=== PATIENT | male | born 1935 | race Caucasian/White ===

== ENCOUNTER 2019-05-17 22:31 | Observation (INO) | payer MEDICARE, SELFPAY ==
--- NOTE | ~2019-05-17 | XR_ITS ---
XR chest 2V 05/17/2019 23:17 Indication: Chest and back pain Procedure: 2 view chest Comparison: 06/10/2016 Findings: Cardiomegaly with pulmonary vascular congestion. Pacemaker leads are stable. Status post me bryson sternotomy for CABG. No pleural effusion or pneumothorax. No acute osseous abnormality. Impression: 1: Cardiomegaly with pulmonary vascular congestion. Reviewed, dictated and finalized at location A. COAT WIPER Impression: 1: Cardiomegaly with pulmonary vascular congestion.
[2019-05-17 22:35] VITALS: BP 143/68; PULSE 66; RESP 14; TEMP 37.3; O2SAT 98
--- NOTE | 2019-05-17 22:42 | ECG_ITS ---
Measurements Intervals [place] Rate: 65 P: 11 [place]: 193 QRS: -57 QRSD: 160 T: 104 QT: 438 QTc: 457 Interpretive Statements SINUS RHYTHM WITH POLYMORPHIC VENTRICULAR TRIPLET AND VENTRICULAR PREMATURE COMPLEXES LEFT BUNDLE BRANCH BLOCK ABNORMAL ECG Electronically Signed On 05-18-2019 6:58:03 RETURNS SUPERVISOR by Noé Herr D.O.
--- NOTE | 2019-05-17 22:58 | ED.CHESTPAIN ---
HPI - Chest Pain General Chief Complaint: Chest Pain Stated Complaint: back pain, shoulder pain traveling to front Source: patient and family Mode of arrival: ambulatory Limitations: no limitations History of Present Illness HPI narrative: He too bad with history of coronary disease and systolic heart failure comes in today complaining of pain in the right side of his mid back that radiates to the right side of his chest. He states he has had this pain for some time and it is alleviated by activity and worse after sitting. He states that he took a nitroglycerin tab earlier today with some Tylenol and his pain was alleviated. He took more nitroglycerin 20 minutes prior to arrival and his pain did not subside. He denies nausea, vomiting, sweating, cough or cold symptoms, syncope, ankle swelling, lightheadedness and palpitations. He states it does not feel like when had his DE in 1980. 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 Onset (ago): day(s) Timing of current episode: episodic and daily Prior episodes: Yes Onset: during rest Pain location: right chest Pain radiation: right scapula Severity: moderate Quality: sharp Relieving factors: nitroglycerin and movement Exacerbating factors: other ( Sitting) Associated symptoms: fever Treatment prior to arrival: nitroglycerin Risk Factors Coronary artery disease risk factors: smoking history, hyperlipidemia and hypertension Related Data Home Medications Medication Instructions Recorded Confirmed alprazolam 0.25 mg PO DAILY 05/02/19 05/17/19 atorvastatin 20 mg PO HS 05/02/19 05/17/19 carvedilol 9.25 mg PO BID 05/02/19 05/17/19 ezetimibe 5 mg PO DAILY 05/02/19 05/17/19 niacin 500 mg PO BID 05/02/19 05/17/19 nitroglycerin 0.4 mg SUBLINGUAL Q5-15M PRN 05/02/19 05/17/19 pantoprazole 20 mg PO HS 05/02/19 05/17/19 sacubitril-valsartan [Entresto] 1 tablet PO BID 05/02/19 05/17/19 acetaminophen [Tylenol Extra 1,000 mg PO Q4-5H PRN 05/17/19 05/17/19 Strength] antiox. [id number] 2 cap PO DAILY 05/17/19 05/17/19 [I-Caps] aspirin 81 mg PO DAILY 05/17/19 05/17/19 clopidogrel 75 mg PO DAILY 05/17/19 05/17/19 loratadine 10 mg PO DAILY 05/17/19 05/17/19 omega-3 fatty acids [Super [place]-3] 900 mg PO DAILY 05/17/19 05/17/19 Allergies Allergy/AdvReac Type Severity Reaction Status Date / Time codeine Allergy Unknown Verified 05/24/15 13:37 spironolactone Allergy Unknown Verified 05/24/15 13:37 rosuvastatin AdvReac Intermediate EXCESSIVE Verified 09/21/17 15:51 SWEATING Review of Systems Constitutional: Constitutional: Denies chills, Reports fever(s) and Denies weakness Eyes: Eyes: Denies change in vision and Denies photophobia ENT: Denies dysphagia, Denies nasal congestion and Denies sore throat Cardiovascular: Cardiovascular: Reports chest pain, Denies rapid heart rate, Denies radiating jaw, neck or arm pain and Denies slow heart rate Respiratory: Respiratory: Denies chest congestion, Denies cough, Denies dyspnea and Denies wheezing Gastrointestinal: Gastrointestinal: Denies abdominal pain, Denies diarrhea, Denies nausea and Denies vomiting Genitourinary: Genitourinary: Denies oliguria, Denies dysuria and Denies urinary frequency Musculoskeletal: Musculoskeletal: Reports back pain, Denies arthralgias, Denies joint swelling and Denies muscle cramps Integumentary/Breasts: Skin/Breast: Denies pruritus, Denies erythema and Denies rash Neurologic: Denies vertigo, Denies dizziness and Denies syncope Psychiatric: Psychiatric: Denies anxiety and Denies depression Endocrine: Endocrine: Denies polydipsia and Denies polyuria Hematologic/Lymphatic: Hematologic/Lymphatic: Denies easy bleeding and Denies easy bruising Allergic/Immunologic: Allergic/Immunologic: Denies lip swelling and Denies wheezing PMFSH Past Medical History Medical History Aortic valve s
[2019-05-17 23:13] LABS: Basophils Absolute Auto 0.04 K/mm3 (0.00-0.10); Basophils Percent Auto 0.6 % (0.0-1.0); Eosinophils Absolute Auto 0.14 K/mm3 (0.02-0.50); Hematocrit 43.7 % (37.0-46.0); Hemoglobin 15.1 g/dL (12.4-15.3); Immature Granulocyte Absolute 0.02 K/mm3 (0.00-0.00); Immature Granulocyte Percent A 0.3 % (0.0-0.0); Lymphocytes Absolute Auto 1.95 K/mm3 (1.10-4.50); Lymphocytes Percent Auto 27.2 % (18.0-42.0); Mean Corpuscular HGB Conc 34.6 g/dL (32.0-36.0); Mean Corpuscular Hemoglobin 34.4 pg (27.0-31.0); Mean Corpuscular Volume 99.5 fL (78.0-102.0); Monocytes Absolute Auto 0.71 K/mm3 (0.10-0.90); Monocytes Percent Auto 9.9 % (2.0-11.0); Neutrophils Absolute Auto 4.3 K/mm3 (1.7-7.2); Platelet Count Result 156 K/mm3 (150-420); Red Blood Count 4.39 M/mm3 (4.70-6.10); Red Cell Distribution Width 11.9 % (11.6-14.4); White Blood Count 7.2 K/mm3 (4.8-10.8)
[2019-05-17] MEDS: ASPIRIN 81 MG CHEWABLE TABLET 324 MG PO (23:20)
[2019-05-17] MEDS: NITROGLYCERIN SL 0.4 MG TABLET (23:22)
--- NOTE | 2019-05-17 23:22 | PC.NURSE ---
CP 5/10, NTG SL administered.
[2019-05-17 23:24] VITALS: BP 135/78; PULSE 65; RESP 14; O2SAT 97
[2019-05-17 23:27] LABS: INR 1.1; Partial Thromboplastin Time 27.2 SEC (22.3-31.6); Prothrombin Time 11.7 Seconds (9.64-11.0)
[2019-05-17 23:29] LABS: BNP 332 pg/mL (0-100)
--- NOTE | 2019-05-17 23:30 | PC.NURSE ---
PT reports no change in R chest/back pain after 1st SL NTG, 08/26.
[2019-05-17 23:31] LABS: Alanine Aminotransferase 22 U/L (16-63); Albumin Level 3.5 g/dL (3.4-5.0); Alkaline Phosphatase 76 U/L (46-116); Aspartate Amino Transferase 22 U/L (15-37); Bilirubin,Total 0.7 mg/dL (0.00-1.00); Blood Urea Nitrogen 14 mg/dL (7-18); Calcium 8.7 mg/dL (8.5-10.1); Carbon Dioxide 26 mmol/L (21-32); Chloride 107 mmol/L (98-108); Estimated CRCL calculation 51 ml/min; Estimated Glomerular Filt Rate 56; Glucose 157 mg/dL (70-99); Osmolality Calculated 301 mOsm/kg (285-295); Sodium 144 mmol/L (136-145); Total Protein 6.4 g/dL (6.4-8.2)
[2019-05-17 23:32] LABS: Troponin I < 0.02 ng/mL (0.00-0.056)
--- NOTE | 2019-05-17 23:32 | PC.NURSE ---
Dr Saleh aware of initial BP 130s-140s/80s with repeat BP 118/63 after 1st dose of NTG. Verbal order to administer 2nd dose SL NTG at this time.
[2019-05-17 23:36] VITALS: BP 118/63; PULSE 67; RESP 14; O2SAT 96
[2019-05-17] MEDS: NITROGLYCERIN SL 0.4 MG TABLET SUBLINGUAL (23:37)
[2019-05-17 23:44] LABS: Influenza Control Valid (Valid)
[2019-05-17 23:50] VITALS: BP 99/56; PULSE 77; RESP 14; O2SAT 98
--- NOTE | 2019-05-17 23:50 | PC.NURSE ---
BP 99/56 after 2nd SL NTG. CP 07/27. Dr Saleh aware. Additional NTG to be held.
[2019-05-18] VITALS (12 sets, daily range): BP systolic 94–145; BP diastolic 46–71; PULSE 52–68; RESP 14–20; TEMP 36.1–37.1; O2SAT 96–98; BMI 33.7
[2019-05-18 00:11] LABS: Add Urine Microscopic? NO; Appearance Urine Clear (Clear); Bilirubin Urine Negative (Negative); Blood Urine Negative (Negative); Color Urine Yellow (Yellow); Glucose Urine UA Negative (Negative); Ketones Urine Negative (Negative); Leukocyte Esterase Ur Negative LEU/UL (Negative); Nitrate Urine Negative (Negative); Protein Urine Negative (Negative); Urobilinogen Urine 0.2 mg/dL (0.2-1.0)
--- NOTE | 2019-05-18 00:13 | PC.NURSE ---
Pt states pain is now 04/28.
--- NOTE | 2019-05-18 00:22 | PC.NURSE ---
Report to FUNMI Marquez.
--- NOTE | 2019-05-18 00:25 | PC.NURSE ---
report receievd from [facility], care resumed. pt states has chronic back pain. only right sided chest pain tonight that comes and goes in little sharp pings .
--- NOTE | 2019-05-18 00:37 | PC.NURSE ---
erp in room with patient and discussing plan of care
--- NOTE | 2019-05-18 01:51 | ADMGEN ---
This patient, Lenny Rogers, was admitted to 2nd Floor Room 204-2. Patient/family oriented to hospital policies and general routines including ID bracelet, bed and alarms, visiting hours, pain management, procedures, bathroom and other care routines, personal items, smoking policy, room service/diet, and visiting hours. Valuables list includes a coat, shirt, pants, belt, socks,shoes, glasses, handkerchief and a nitroglycerin pill. Pt instructed on how to activate the Rapid Response Team has been discussed. Patient/Family are encouraged to report perceived risks to care and to ask questions if they do not understand what they are told or what they should do.
[2019-05-18 02:25] LABS: Troponin I 0.02 ng/mL (0.00-0.056)
[2019-05-18] MEDS: ALPRAZOLAM 0.5 MG TABLET 0.25 MG PO (02:39)
[2019-05-18 05:27] LABS: Basophils Absolute Auto 0.04 K/mm3 (0.00-0.10); Basophils Percent Auto 0.6 % (0.0-1.0); Eosinophils Percent Auto 1.5 % (1.0-6.0); Hematocrit 42.4 % (37.0-46.0); Hemoglobin 14.7 g/dL (12.4-15.3); Immature Granulocyte Absolute 0.02 K/mm3 (0.00-0.00); Immature Granulocyte Percent A 0.3 % (0.0-0.0); Lymphocytes Absolute Auto 1.63 K/mm3 (1.10-4.50); Lymphocytes Percent Auto 24.4 % (18.0-42.0); Mean Corpuscular HGB Conc 34.7 g/dL (32.0-36.0); Mean Corpuscular Hemoglobin 34.7 pg (27.0-31.0); Mean Platelet Volume 8.9 fl (8.7-11.0); Monocytes Absolute Auto 0.57 K/mm3 (0.10-0.90); Monocytes Percent Auto 8.5 % (2.0-11.0); Neutrophils Absolute Auto 4.3 K/mm3 (1.7-7.2); Neutrophils Percent Auto 64.7 % (50.0-70.0); Platelet Count Result 138 K/mm3 (150-420); Red Blood Count 4.24 M/mm3 (4.70-6.10); White Blood Count 6.7 K/mm3 (4.8-10.8)
[2019-05-18 06:03] LABS: Alanine Aminotransferase 20 U/L (16-63); Albumin Level 3.3 g/dL (3.4-5.0); Alkaline Phosphatase 75 U/L (46-116); Anion Gap 13.8 mmol/L (7-16); Aspartate Amino Transferase 20 U/L (15-37); Bilirubin,Total 0.7 mg/dL (0.00-1.00); Blood Urea Nitrogen 15 mg/dL (7-18); Calcium 8.5 mg/dL (8.5-10.1); Carbon Dioxide 25 mmol/L (21-32); Chloride 109 mmol/L (98-108); Estimated CRCL calculation 56 ml/min; Estimated Glomerular Filt Rate > 60; Glucose 124 mg/dL (70-99); Osmolality Calculated 299 mOsm/kg (285-295); Potassium 3.8 mmol/L (3.5-5.1); Sodium 144 mmol/L (136-145); Total Protein 6.1 g/dL (6.4-8.2)
[2019-05-18 06:06] LABS: Troponin I 0.02 ng/mL (0.00-0.056)
[2019-05-18] MEDS: CLOPIDOGREL BISULFATE 75 MG TABLET PO (10:05)
[2019-05-18] MEDS: LORATADINE 10 MG TABLET PO (10:06)
[2019-05-18] MEDS: NIACIN SA 500 MG TABLET PO (10:06)
[2019-05-18] MEDS: ALPRAZOLAM 0.25 MG TABLET PO (10:08)
[2019-05-18] MEDS: ACETAMINOPHEN 325 MG TABLET 650 MG PO (10:15)
--- NOTE | 2019-05-18 10:30 | ECG_ITS ---
Measurements Intervals [place] Rate: 54 P: 60 [place]: 209 QRS: -59 QRSD: 162 T: 134 QT: 472 QTc: 448 Interpretive Statements SINUS BRADYCARDIA WITH FIRST DEGREE AV BLOCK RIGHT BUNDLE BRANCH BLOCK LEFT ANTERIOR FASCICULAR BLOCK ABNORMAL ECG Electronically Signed On 05-18-2019 11:18:42 MICROFILM EQUIPMENT INSPECTOR by Noé Herr D.O.
[2019-05-18 10:56] LABS: Magnesium 1.8 mg/dL (1.8-2.4); Phosphorus 2.8 mg/dL (2.6-4.7); Thyroid Stimulating Hormone 2.81 uIU/mL (0.36-3.74)
--- NOTE | 2019-05-18 12:05 | PM.IMHP ---
H&P: HPI History of Present Illness Chief complaint: back pain, shoulder pain traveling to front Narrative: Lenny Rogers is a 84 year old male admitted by his own ambulation into ED for back pain, more specifically right shoulder pain that travels through anteriorly to right chest. In the ED, at admission, he was complaining of pain in the right side of his mid back that radiates to the right side of his chest. He states he has had this pain for some time and it is alleviated by activity and worse after sitting. He states that he took a nitroglycerin tab earlier today with some Tylenol and his pain was alleviated. He took more nitroglycerin 20 minutes prior to arrival and his pain did not subside.He denies nausea, vomiting, sweating, cough or cold symptoms, syncope, ankle swelling, lightheadedness and palpitations.He states it does not feel like when had his NC in 1980. 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 His current BNP = 332. EKG shows Sinus rhythm, with LBBB and biventricular pacing, triplets and PVCs. The next EKG showed Sinus bradycardia with RBBB. He stated that his Mild Disabilities Teacher Injection Molding Engineer Dr. Carlson and Dr. Bush would be completely his PPM interrogation within a few days at [facility]. Today, he stated that his right shoulder blade had a knot-like feeling that was also felt in his right chest anteriorly. His pain has resolved at this point; he is currently denying any discomfort at this time. He denies SOB, headache, or cough. He denies any new or concerning physical limitations. His family was present at his bedside, including his daughter. His Troponins x 3 are WNL, his vital signs are stable with HR 55-77bpm, SBPs>94. His Influenza A and B were WNL. His UA was WNL. Orthostatic BPs were all >120s. At discharge, instructed Lenny to call his Primary Care Physician Dr. Campo and his Injection Molding Engineer Dr. Carlson at [facility] to schedule Hospital Discharge Follow UP visits to be seen in 1-14 days. Let them know that you were admitted for Atypical Chest Pain. Continued his home Protonix, Coreg, Atorvastatin, Plavix, and 81mg ASA daily dosing. Review of Systems Constitutional: Constitutional: Denies chills, Reports fever(s) and Denies weakness Eyes: Eyes: Denies change in vision and Denies photophobia ENT: Denies dysphagia, Denies vertigo, Denies dizziness, Denies lip swelling, Denies nasal congestion and Denies sore throat Cardiovascular: Cardiovascular: Reports chest pain, Denies syncope, Denies rapid heart rate, Denies radiating jaw, neck or arm pain, Denies dyspnea and Denies slow heart rate Respiratory: Respiratory: Denies chest congestion, Denies cough, Denies dyspnea and Denies wheezing Gastrointestinal: Gastrointestinal: Denies abdominal pain, Denies dysphagia, Denies diarrhea, Denies nausea and Denies vomiting Genitourinary: Genitourinary: Denies oliguria, Denies dysuria and Denies urinary frequency Musculoskeletal: Musculoskeletal: Reports back pain, Denies arthralgias, Denies joint swelling and Denies muscle cramps Integumentary/Breasts: Skin/Breast: Denies pruritus, Denies erythema and Denies rash Neurologic: Denies vertigo, Denies dizziness, Denies syncope and Denies weakness Psychiatric: Psychiatric: Denies anxiety and Denies depression Endocrine: Endocrine: Denies polydipsia and Denies polyuria Hematologic/Lymphatic: Hematologic/Lymphatic: Denies easy bleeding and Denies easy bruising Allergic/Immunologic: Allergic/Immunologic: Denies lip swelling and Denies wheezing PMFSH Past Medical History Medical History Aortic valve sclerosis Borderline diabetes CAD (coronary artery disease) Hyperlipidemia Myocardial infarct 1981 septal 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
--- NOTE | 2019-05-18 12:05 | PM.DS ---
DS: Diagnosis Discharge Diagnosis (1) Atypical chest pain: Code(s): R07.89 - Other chest pain Status: Acute Assessment and Plan: right shoulder pain that travels through anteriorly to right chest. has had this pain for some time and it is alleviated by activity and worse after sitting. Tylenol and his pain was alleviated. more nitroglycerin 20 minutes prior to arrival and his pain did not subside. Today, he stated that his right shoulder blade had a knot-like feeling that was also felt in his right chest anteriorly. His pain has resolved at this point; he is currently denying any discomfort at this time. He denies SOB, headache, or cough. He denies any new or concerning physical limitations. His family was present at his bedside, including his daughter. At discharge, instructed Lenny to call his Primary Care Physician Dr. Campo and [facility] Panelboard Operator [facility] Follow UP visits to be seen in 1-14 days. Let them know that you were admitted for Atypical Chest Pain. Continued his home Protonix, Coreg, Atorvastatin, Plavix, and 81mg ASA daily dosing. (2) Dizziness: Code(s): R42 - Dizziness and giddiness Status: Acute Assessment and Plan: His Troponins x 3 are WNL, his vital signs are stable with HR 55-77bpm, SBPs>94. Influenza A and B were WNL. UA was WNL. Orthostatic BPs were all >120s. (3) Abnormal EKG: Code(s): R94.31 - Abnormal electrocardiogram [ECG] [EKG] Status: Acute Assessment and Plan: EKG shows Sinus rhythm, with LBBB and biventricular pacing, triplets and PVCs. The next EKG showed Sinus bradycardia with RBBB. He stated that his Loan Representative Panelboard Operator Dr. Carlson and Dr. Bush would be completely his PPM interrogation within a few days at [facility]. DS: Summary Time Spent with Patient Time attestation: Total time spent providing and/or coordinating discharge services:>60 minutes Exam Const: General: alert Nutritional Appearance: obese Orientation/consciousness: patient oriented x3 Limitations: no limitations Other: Mild distress HENMT: Ears: TM's normal bilaterally and EAC's normal Mouth: Yes Normal oral and palatal mucosa present and Yes moist mucous membranes Throat: posterior oropharynx normal and uvula midline Eyes: Conjunctivae: conjunctivae normal Pupils: Equal, round and reactive pupils present EOM: EOMs intact bilaterally Direct Ophthalmoscopy: No photophobia Resp: Effort & Inspection: normal respiratory effort and not labored Auscultation: clear to auscultation bilaterally, no rales, no rhonchi and no wheezes Cardio: Rate: regular rate Rhythm: regular rhythm Heart sounds: Murmur heart sound present systolic GI: Inspection: non-distended Auscultation: normal bowel sounds Other: Nontender, no masses. Skin: General skin exam: normal color, no jaundice and no pallor Rashes: no rashes Neuro: General: patient oriented x3, moves all extremities, no focal motor deficits and CN's II-XI intact bilaterally Cranial nerves: Yes Equal, round and reactive pupils present Speech: normal speech Extrem: General: normal to inspection and no clubbing, cyanosis or edema Psych: Appearance: grossly normal and well kempt Mental Status: mental status grossly normal Affect: normal affect Attitude: cooperative DS: Data Data Completed and Pending Labs on day of discharge: Labs from last 24 hours 05/18/19 05/18/19 05/18/19 05:20 05:20 05:20 WBC 6.7 RBC 4.24 L Hgb 14.7 Hct 42.4 MCV 100.0 MCH 34.7 H MCHC 34.7 RDW 12.0 Plt Count 138 L MPV 8.9 Immature Gran % (Auto) 0.3 H Neut % (Auto) 64.7 Lymph % (Auto) 24.4 [place] % (Auto) 8.5 Eos % (Auto) 1.5 Baso % (Auto) 0.6 Lymph # (Auto) 1.63 [place] # (Auto) 0.57 Eos # (Auto) 0.10 Baso # (Auto) 0.04 Abs Immat Gran (auto) 0.02 H Absolute Neuts (auto)
--- NOTE | 2019-05-23 10:14 | PC.NURSE ---
Discharge Call Back [phone] Discharge instructions/transition of care understood both verbal and written. No problems making a follow-up appointment with PCP.
== END 2019-05-18 12:20 | disposition home or self-care (01) ==
LOC: CHSED 05-18 00:40 → CHS2ND 05-18 01:22
PROVIDERS: Nurse Practitioner; Admitting Provider Emergency Medicine; Emergency Provider Emergency Medicine; Visit Provider Emergency Medicine
DX: R07.89 Other chest pain (principal); R42 Dizziness and giddiness; R94.31 Abnormal electrocardiogram [ECG] [EKG]; I25.10 Atherosclerotic heart disease of native coronary artery without angina pectoris; Z95.1 Presence of aortocoronary bypass graft; E78.5 Hyperlipidemia, unspecified; I50.20 Unspecified systolic (congestive) heart failure; I35.8 Other nonrheumatic aortic valve disorders; Z96.653 Presence of artificial knee joint, bilateral; I25.2 Old myocardial infarction
CPT/HCPCS: 36415; 71046; 80053; 81003; 83735; 83880; 84100; 84443; 84484; 85025; 85610; 85730; 87804; 93005; 99285; A9270; G0378

== ENCOUNTER → 2019-06-21 08:39 | Outpatient (REF) | payer MEDICARE, SELFPAY | LOC: ANHLAB 08:39 | PROVIDERS: PCP Student in an Organized Health Care Education/Training Program; Visit Provider Nurse Practitioner Family | DX: C44.222 Squamous cell carcinoma of skin of right ear and external auricular canal (principal) | CPT/HCPCS: 88305; 88331 ==

== ENCOUNTER → 2019-09-04 07:40 | Outpatient (REF) | payer MEDICARE, SELFPAY | LOC: ANHLAB 07:40 | PROVIDERS: PCP Student in an Organized Health Care Education/Training Program; Visit Provider Nurse Practitioner | DX: C44.329 Squamous cell carcinoma of skin of other parts of face (principal) | CPT/HCPCS: 88305; 88331 ==

== ENCOUNTER 2020-04-15 11:54 | Outpatient (CLI) | payer MEDICARE, SELFPAY ==
[2020-04-15 12:34] LABS: Basophils Percent Auto 0.7 % (0.2-1.2); Eosinophils Absolute Auto 0.1 K/mm3 (0-0.3); Eosinophils Percent Auto 1.3 % (0-4.4); Hematocrit 46.1 % (42.0-52.0); Hemoglobin 15.4 g/dL (14.0-18.0); Immature Granulocyte Absolute 0.02 K/mm3 (0.00-0.031); Immature Granulocyte Percent A 0.3 % (0-0.5); Lymphocytes Absolute Auto 1.91 K/mm3 (0.9-3.2); Lymphocytes Percent Auto 31.5 % (18.3-44.2); Mean Corpuscular HGB Conc 33.4 g/dl (32-36); Mean Corpuscular Hemoglobin 33.8 pg (26-34); Mean Corpuscular Volume 101.3 fl (80-100); Mean Platelet Volume 8.9 fl (7.4-10.4); Monocytes Absolute Auto 0.8 K/mm3 (0.1-0.6); Monocytes Percent Auto 12.4 % (2.6-8.5); Neutrophils Absolute Auto 3.3 K/mm3 (1.3-6.7); Neutrophils Percent Auto 53.8 % (45.5-73.1); Platelet Count Result 128 k/mm3 (150-375); Red Blood Count 4.55 M/mm3 (4.6-6.20); Red Cell Distribution Width 12.2 % (11.5-14.5); White Blood Count 6.1 K/mm3 (4.5-10.0)
[2020-04-15 13:02] LABS: Hemoglobin A1C 5.3 % (<5.7)
[2020-04-15 13:17] LABS: Prostate Specific Antigen 0.8 ng/mL (< OR = 4.0)
[2020-04-15 14:11] LABS: Vitamin D 25 Hydroxy 33.1 ng/mL
== END 2020-04-15 11:55 | disposition home or self-care (01) ==
LOC: ANHLAB 11:59
PROVIDERS: PCP Student in an Organized Health Care Education/Training Program; Visit Provider Student in an Organized Health Care Education/Training Program
DX: I10 Essential (primary) hypertension (principal); Z12.5 Encounter for screening for malignant neoplasm of prostate; Z68.34 Body mass index [BMI] 34.0-34.9, adult; R73.9 Hyperglycemia, unspecified
CPT/HCPCS: 36415; 82306; 83036; 84153; 84443; 85025; G0103

== ENCOUNTER 2020-05-16 12:27 | Outpatient (CLI) | payer MEDICARE, SELFPAY ==
[2020-05-16 13:01] LABS: Basophils Absolute Auto 0.1 K/mm3 (0.0-0.1); Eosinophils Absolute Auto 0.1 K/mm3 (0-0.3); Eosinophils Percent Auto 1.3 % (0-4.4); Hematocrit 48.6 % (42.0-52.0); Hemoglobin 16.2 g/dL (14.0-18.0); Immature Granulocyte Absolute 0.02 K/mm3 (0.00-0.031); Immature Granulocyte Percent A 0.3 % (0-0.5); Lymphocytes Absolute Auto 1.59 K/mm3 (0.9-3.2); Lymphocytes Percent Auto 26.3 % (18.3-44.2); Mean Corpuscular HGB Conc 33.3 g/dl (32-36); Mean Corpuscular Hemoglobin 34.3 pg (26-34); Monocytes Absolute Auto 0.7 K/mm3 (0.1-0.6); Monocytes Percent Auto 11.3 % (2.6-8.5); Neutrophils Absolute Auto 3.6 K/mm3 (1.3-6.7); Neutrophils Percent Auto 59.8 % (45.5-73.1); Platelet Count Result 155 k/mm3 (150-375); Red Blood Count 4.72 M/mm3 (4.6-6.20); Red Cell Distribution Width 12.5 % (11.5-14.5)
[2020-05-16 13:18] LABS: Hemoglobin A1C 5.5 % (<5.7)
[2020-05-16 13:47] LABS: Prostate Specific Antigen 0.9 ng/mL (< OR = 4.0)
[2020-05-16 13:51] LABS: Vitamin D 25 Hydroxy 27.3 ng/mL
== END 2020-05-16 12:28 | disposition home or self-care (01) ==
PROVIDERS: Family Provider Emergency Medicine; PCP Student in an Organized Health Care Education/Training Program; Visit Provider Student in an Organized Health Care Education/Training Program
DX: I10 Essential (primary) hypertension (principal); Z12.5 Encounter for screening for malignant neoplasm of prostate; Z68.34 Body mass index [BMI] 34.0-34.9, adult; R73.9 Hyperglycemia, unspecified
CPT/HCPCS: 36415; 82306; 83036; 84153; 84443; 85025; G0103

== ENCOUNTER 2021-01-16 08:45 | Emergency (ER) | payer MEDICARE, SELFPAY ==
[2021-01-16 09:17] VITALS: BP 143/73; PULSE 80; RESP 20; TEMP 37; O2SAT 95
[2021-01-16 09:29] LABS: SARS-CoV-2 Ag Negative (Negative)
--- NOTE | 2021-01-16 09:31 | ED.BACK ---
HPI - Back Pain/Injury General Chief Complaint: Back Pain/Injury Stated Complaint: clear mucous, back pain Source: patient Mode of arrival: ambulatory Limitations: no limitations History of Present Illness HPI Narrative: patient presents with a chronic back pain and did see his primary care physician about 5 to 6 days ago and was prescribed medication including muscle relaxants. Patient is concerned with some having some nasal discharge with no fevers no shortness of breath no cough states that he has had allergy issues in the past. Currently there is no shortness of breath or chest pain no nausea vomiting no abdominal pain. MD elicited complaint: back pain Pertinent past history: prior back pain Onset (ago): day(s) Timing: intermittent Severity: mild Similar Symptoms Previously: Yes Related Data Home Medications Medication Instructions Recorded Confirmed Entresto 1 tablet PO BID 05/02/19 05/17/19 alprazolam 0.25 mg PO DAILY 05/02/19 05/17/19 atorvastatin 20 mg PO HS 05/02/19 05/17/19 carvedilol 9.25 mg PO BID 05/02/19 05/17/19 ezetimibe 5 mg PO DAILY 05/02/19 05/17/19 niacin 500 mg PO BID 05/02/19 05/17/19 nitroglycerin 0.4 mg SUBLINGUAL Q5-15M PRN 05/02/19 05/17/19 I-Caps 2 cap PO DAILY 05/17/19 05/17/19 acetaminophen [Tylenol Extra 1,000 mg PO Q4-5H PRN 05/17/19 05/17/19 Strength] aspirin 81 mg PO DAILY 05/17/19 05/17/19 clopidogrel 75 mg PO DAILY 05/17/19 05/17/19 loratadine 10 mg PO DAILY 05/17/19 05/17/19 omega-3 fatty acids [Super [place]-3] 900 mg PO DAILY 05/17/19 05/17/19 tizanidine 2 - 4 mg PO Q6H PRN 01/16/21 01/16/21 Allergies Allergy/AdvReac Type Severity Reaction Status Date / Time codeine Allergy Unknown Unknown Verified 09/12/19 12:41 spironolactone Allergy Unknown Unknown Verified 09/12/19 12:41 rosuvastatin AdvReac Intermediate EXCESSIVE Verified 09/12/19 12:41 SWEATING Review of Systems Review of Systems: All systems reviewed & are unremarkable except as noted in HPI and below PMFSH Past Medical History Medical History (Updated 01/16/21 @ 09:34 by Fortino Cade MD) Aortic valve sclerosis Borderline diabetes CAD (coronary artery disease) Hyperlipidemia Myocardial infarct 1981 septal 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urgical History History of bilateral knee replacement History of left heart catheterization 08/2009 Hx laparoscopic cholecystectomy Hx of CABG 1988 Stented coronary artery left main 12/2007 Family History Family History Mother Family history of cardiovascular disease, Onset Age: 89 Sibling Family history of lung cancer Social History Social History Smoking status: Former smoker Alcohol intake: current Drinks per week: 7 Substance use: never Substance use type: does not use Gender identity (if verbalized by the patient): Male Spiritual care concerns: No Agree to blood products: Yes Exam Const: General: no acute distress Orientation/consciousness: patient oriented x3 Eyes: Conjunctivae: conjunctivae normal Pupils: Equal, round and reactive pupils present Neck: Neck: normal visual inspection and no meningeal signs Resp: Effort & Inspection: normal respiratory effort Auscultation: clear to auscultation bilaterally Cardio: Rate: regular rate Rhythm: regular rhythm : Testes: Testes normal Urinary Catheter: Urinary Catheter: patent and draining Back/Spine/Pelvis: Back: no CVA tenderness Skin: General skin exam: normal color Rashes: no rashes Neuro: General: patient oriented x3 and moves all extremities Extrem: General: normal to inspection and no pedal edema Psych: Mental Status: mental status grossly normal Affect: normal affect Course Course Emergency [facility]
[2021-01-16 09:41] VITALS: RESP 20
== END 2021-01-16 09:41 | disposition home or self-care (01) ==
PROVIDERS: Emergency Provider Emergency Medicine; PCP Student in an Organized Health Care Education/Training Program
DX: S39.012D Strain of muscle, fascia and tendon of lower back, subsequent encounter (principal); R09.81 Nasal congestion; I35.8 Other nonrheumatic aortic valve disorders; I25.10 Atherosclerotic heart disease of native coronary artery without angina pectoris; I45.10 Unspecified right bundle-branch block; I25.2 Old myocardial infarction; E78.5 Hyperlipidemia, unspecified; Z96.653 Presence of artificial knee joint, bilateral; Z95.0 Presence of cardiac pacemaker; Z90.49 Acquired absence of other specified parts of digestive tract; Z95.5 Presence of coronary angioplasty implant and graft; Z95.1 Presence of aortocoronary bypass graft; I50.9 Heart failure, unspecified; Z87.891 Personal history of nicotine dependence; Z20.822 Contact with and (suspected) exposure to COVID-19
CPT/HCPCS: 87426; 99282; 99283; C9803

== ENCOUNTER 2021-03-24 12:58 | Outpatient (RCR) | payer MEDICARE, SELFPAY ==
--- NOTE | 2021-03-24 13:59 | PTOPEVAL ---
Thank you for referring Lenny Rogers to [facility].? The patient is scheduled to be seen for therapy? ____x/week for ___ weeks. Please review, sign, date and return this plan of care TAL. I agree with and certify that the following plan of care is medically necessary. Referring Physician Date Admitting Provider: Attending Provider: Samy Campo, DO Referring Provider: *PT Outpatient Evaluation Start: 03/24/21 12:43 Freq: Status: Active Protocol: Document 03/24/21 13:00 ACR (Rec: 03/24/21 13:59 ACR [id number]) Therapy Assessment Status Assessment Status Assessment Status Evaluation Outpatient Past Medical History Neurological History Hx Neurological Disorders No Significant History Cardiovascular History Hx Atrial Fibrillation Yes Hx Cardiac Arrhythmia Yes Hx Cardiac Catheterization Yes Hx Cardiac Surgery Yes Hx Chest Pain Yes Hx Coronary Artery Bypass Graft Yes: 4 vessels Hx Coronary Artery Disease Yes Hx Coronary Stent Yes: x5 Hx Hypercholesterolemia Yes Hx Hypertension Yes Hx Internal Defibrillator Yes Hx Myocardial Infarction Yes Hx Pacemaker Yes Hx Valve Replacement Yes Hx Vascular Surgery Yes Respiratory History Hx Respiratory Disorders No Significant History Gastrointestinal History Hx Cholecystectomy Yes Hx Gall Bladder Disease Yes: pt had a cholecestectomy about 10 yrs ago Genitourinary History Hx Genitourinary Disorders No Significant History Musculoskeletal History Hx Arthritis Yes Hx Back Injury Yes Hx Back Pain Yes Hx Joint Replacement Yes: felicia knees Hx Orthopedic Surgery Yes Hematological History Hx Hematological Disorders No Significant History Endocrine History Hx Endocrine Disorders No Significant History HEENT History Hx Cataracts Yes: cataract on the right eye Hx Sinus Problems Yes Integumentary History Hx Other Skin Disorders Yes: pt has small benign skin cancers Reproductive History Hx Reproductive Disorders No Significant History Psychosocial History Hx Anxiety Yes Pain History Has Past Pain Affected Your Daily Life Yes Effective Methods of Pain Control Tylenol, exercise and chiropractic treatments Anesthesia History Hx Post-Op Nausea/Vomiting Yes Other History Hx Other Surgeries Yes Evaluation Information Problem Diagnosis back pain Subjective Information Patient reports that he has Query Text:*
--- NOTE | 2021-05-28 07:46 | PCPTNOTE ---
Mr. Rogers attended a total of 5 treatment sessions from 03/24/21 to 04/07/21. He has failed to contact the clinic and cannot be reached via telephone. He will be discharged from our care. Refer to pt. last Rx note for discharge status.
== END 2021-04-07 13:52 | disposition home or self-care (01) ==
LOC: CHSPT 12:58
PROVIDERS: PCP Student in an Organized Health Care Education/Training Program; Visit Provider Student in an Organized Health Care Education/Training Program
DX: M54.9 Dorsalgia, unspecified (principal)
CPT/HCPCS: 97110; 97140; 97161

== ENCOUNTER 2021-08-10 04:44 | Inpatient (IN) | payer MEDICARE, SELFPAY ==
[2021-08-10] VITALS (41 sets, daily range): BP systolic 97–112; BP diastolic 50–68; PULSE 63–112; RESP 12–24; TEMP 36.4–36.7; O2SAT 92–100; BMI 32.9
--- NOTE | ~2021-08-10 | XR_ITS ---
XR chest 1V portable DATE: 08/11/2021 13:32 INDICATION: Cough TECHNIQUE: Portable upright AP chest on August 11, 2021 at 1323 hours COMPARISON: 05/17/2019 PA and lateral chest FINDINGS: Status post sternotomy. Left-sided defibrillator/pacemaker device with leads overlying righ t atrium and right ventricle. Cardiomegaly. Aortic calcification and mild unfolding. There is pulmonary vascular congestion and redistribution. There is prominence of the minor fissure c onsistent with subpleural edema. Minimal pleural effusions may be present. Mild infiltrates in the mid and lower lung zones may be due to pulmonary edema. Osteopenia. IMPRESSION: Congestive heart failure Left AICD/pacemaker device Reviewed, dictated and finalized at location A.
--- NOTE | ~2021-08-10 | CT_ITS ---
EXAMINATION: CT brain wo con DATE: 08/10/2021 05:55 INDICATION: Dizziness and weakness TECHNIQUE: Computed tomography (CT) of the head was performed without intravenous contrast. Sagittal and coronal reconstructions were performed. The mA was adjusted according to patient size. Iterative reconstruction technique was employed. The dose-length product was 605.33 mGy-cm. COMPARISON: None FINDINGS: No acute intracranial hemorrhage, acute infarction or abnormal extra axial fluid collection. There is mild scattered white matter hypoattenuation consistent with chronic small vessel ischemic disease. S ymmetric prominence of the sulci consistent with mild age-appropriate diffuse cerebral volume loss. V entricles are normal and symmetric. No mass/mass effect. Changes of bilateral intraocular lens replac ement. The orbits, paranasal sinuses and mastoid air cells are normal. Intracranial calcified cerebra l atherosclerosis is noted. IMPRESSION: 1. No acute intracranial process. 2. Age-related changes including mild diffuse volume loss and mild scattered white matter hypoattenua tion consistent with chronic small vessel ischemic disease. Reviewed, dictated and finalized at location A. IMPRESSION: 1. No acute intracranial process. 2. Age-related changes including mild diffuse volume loss and mild scattered wh ite matter hypoattenuation consistent with chronic small vessel ischemic diseas e.
--- NOTE | 2021-08-10 04:58 | ECG_ITS ---
Measurements Intervals [place] Rate: 76 P: -70 [place]: 160 QRS: -64 QRSD: 162 T: 100 QT: 428 QTc: 484 Interpretive Statements SINUS RHYTHM WITH FIRST-DEGREE AV BLOCK WITH FREQUENT VENTRICULAR PREMATURE COMPLEXES RIGHT BUNDLE BRANCH BLOCK [120+ ms QRS DURATION, UPRIGHT V1, 40+ ms S IN I/aVL/V4/V5/V6] LEFT ANTERIOR FASCICULAR BLOCK [QRS AXIS <= -45, QR IN I, RS IN II] POSSIBLE ANTERIOR MYOCARDIAL INFARCTION , PROBABLY OLD [30 ms Q WAVE IN V3/V4, OR R < 0.2 mV IN V4] COMPARED TO ECG 05/18/2019 11:18:56 NO SIGNIFICANT CHANGE Electronically Signed On 08-10-2021 8:10:04 CDT by Fortino Walden M.D.
--- NOTE | 2021-08-10 05:02 | ED.GENADULT ---
HPI - General Adult General Chief complaint: Unspecified <Keyon Garcia MD - Last Filed: 08/10/21 05:14> Stated complaint: not feeling well and shingles <Keyon Garcia MD - Last Filed: 08/10/21 05:14> Time Seen by Provider: 08/10/21 05:01 <Keyon Garcia MD - Last Filed: 08/10/21 05:14> Source: patient <Keyon Garcia MD - Last Filed: 08/10/21 05:14> Mode of arrival: EMS <Keyon Garcia MD - Last Filed: 08/10/21 05:14> Limitations: no limitations <Keyon Garcia MD - Last Filed: 08/10/21 05:14> History of Present Illness HPI narrative: Patient is an 86-year-old male complaining of dizziness and generalized weakness that started last night. According to daughter patient is too weak to even get up, usually ambulates without assistance. Patient states that his dizziness is worse with standing up and ambulation. Patient denies any speech or visual disturbance, focal weakness or numbness, headache, chest pain, shortness of breath, abdominal pain, nausea, vomiting, diarrhea, fever or chills. <Keyon Garcia MD - Last Filed: 08/10/21 05:14> Related Data Home medications: Home Medications Medication Instructions Recorded Confirmed Entresto 1 tablet PO BID 05/02/19 01/16/21 alprazolam 0.25 mg PO DAILY 05/02/19 01/16/21 atorvastatin 20 mg PO HS 05/02/19 01/16/21 carvedilol 9.25 mg PO BID 05/02/19 01/16/21 ezetimibe 5 mg PO DAILY 05/02/19 01/16/21 niacin 500 mg PO BID 05/02/19 01/16/21 nitroglycerin 0.4 mg SUBLINGUAL Q5-15M PRN 05/02/19 01/16/21 I-Caps 2 cap PO DAILY 05/17/19 01/16/21 acetaminophen [Tylenol Extra 1,000 mg PO Q4-5H PRN 05/17/19 01/16/21 Strength] aspirin 81 mg PO DAILY 05/17/19 01/16/21 clopidogrel 75 mg PO DAILY 05/17/19 01/16/21 loratadine 10 mg PO DAILY 05/17/19 01/16/21 omega-3 fatty acids [Super [place]-3] 900 mg PO DAILY 05/17/19 01/16/21 digoxin 125 mcg PO EVERY OTHER DAY 08/10/21 furosemide 20 mg PO DAILY 08/10/21 tizanidine 2 mg PO Q6-8H PRN 08/10/21 valacyclovir 1,000 mg PO TID 08/10/21 <Keyon Garcia MD - Last Filed: 08/10/21 05:14> Allergies/adverse reactions: Allergies Allergy/AdvReac Type Severity Reaction Status Date / Time codeine Allergy Unknown Unknown Verified 08/10/21 05:42 spironolactone Allergy Unknown Unknown Verified 08/10/21 05:42 rosuvastatin AdvReac Intermediate EXCESSIVE Verified 08/10/21 05:42 SWEATING <Keyon Garcia MD - Last Filed: 08/10/21 05:14> Review of Systems Review of Systems: All systems reviewed & are unremarkable except as noted in HPI and below <Keyon Garcia MD - Last Filed: 08/10/21 05:14> Constitutional: Constitutional: Denies body ache(s), Denies chills, Denies excessive sweating, Denies fatigue, Denies fever(s), Denies headache(s), Denies lethargy, Denies malaise and Denies weight loss <Keyon Garcia MD - Last Filed: 08/10/21 05:14> Eyes: Eyes: Denies blurry vision, Denies change in vision and Denies loss of vision <Keyon Garcia MD - Last Filed: 08/10/21 05:14> ENT: Denies dizziness, Denies ear discharge, Denies headache(s), Denies lip swelling, Denies epistaxis, Denies nasal congestion, Denies neck pain, Denies throat swelling and Denies tongue swelling <Keyon Garcia MD - Last Filed: 08/10/21 05:14> Cardiovascular: Cardiovascular: Denies chest pain, Denies chest pain at rest, Denies chest pain with activity, Denies diaphoresis, Denies rapid heart rate, Denies edema, Denies irregular heart rhythm, Denies lightheadedness, Denies palpitations, Denies dyspnea and Denies dyspnea on exertion <Keyon Garcia MD - Last Filed: 08/10/21 05:14> Respiratory: Respiratory: Denies chest congestion, Denies cough, Denies hemoptysis, Denies dyspnea and Denies dyspnea on exertion <Keyon Garcia MD - Last Filed: 08/10/21 05:14> Gastrointestinal: Gastrointestinal: Denies abdominal pain, Denies melena, Denies hematochezia, Denies diarrhea, Amaury
[2021-08-10 05:12] LABS: Basophils Percent Auto 0.6 % (0.2-1.2); Hematocrit 35.6 % (42.0-52.0); Hemoglobin 11.1 g/dL (14.0-18.0); Immature Granulocyte Absolute 0.03 K/mm3 (0.00-0.031); Immature Granulocyte Percent A 0.6 % (0-0.5); Immature Platelet Fraction Pct 2.3 % (0.9-11.2); Lymphocytes Absolute Auto 1.46 K/mm3 (0.9-3.2); Lymphocytes Percent Auto 27.6 % (18.3-44.2); Mean Corpuscular HGB Conc 31.2 g/dl (32-36); Mean Corpuscular Hemoglobin 33.6 pg (26-34); Mean Corpuscular Volume 107.9 fl (80-100); Monocytes Absolute Auto 0.6 K/mm3 (0.1-0.6); Monocytes Percent Auto 10.4 % (2.6-8.5); Neutrophils Absolute Auto 3.2 K/mm3 (1.3-6.7); Neutrophils Percent Auto 60.8 % (45.5-73.1); Platelet Count Result 63 k/mm3 (150-375); Red Cell Distribution Width 16.2 % (11.5-14.5); White Blood Count 5.3 K/mm3 (4.5-10.0)
[2021-08-10 05:20] LABS: INR 1.4; Prothrombin Time 16.5 Seconds (11.1-14.7)
[2021-08-10 05:21] LABS: Partial Thromboplastin Time 45.7 SECONDS (22.3-36.8)
[2021-08-10 05:27] LABS: Anion Gap 11 mmol/L (8-16); Blood Urea Nitrogen 28 mg/dL (9-20); Calcium 8.1 mg/dL (8.4-10.2); Carbon Dioxide 25 mmol/L (22-30); Chloride 101 mmol/L (98-107); Estimated Glomerular Filt Rate 58; Glucose 104 mg/dL (65-110); Potassium 2.9 mmol/L (3.4-5.0); Sodium 137 mmol/L (137-145)
[2021-08-10 05:43] LABS: Troponin I 0.259 ng/mL (0.000-0.034)
[2021-08-10] MEDS: POTASSIUM CHLORIDE 20 MEQ TABLET 40 MEQ PO (06:47)
[2021-08-10] MEDS: ASPIRIN 81 MG CHEWABLE TABLET 324 MG PO (06:47)
[2021-08-10 07:19] LABS: Digoxin 0.7 ng/mL (0.8-2.0)
[2021-08-10] MEDS: ACETAMINOPHEN 325 MG TABLET 650 MG PO ×2 (07:25→19:06)
[2021-08-10 08:46] LABS: Troponin I 0.276 ng/mL (0.000-0.034)
--- NOTE | 2021-08-10 10:18 | ADMGEN ---
This patient, Lenny Rogers, was admitted to IMU Room 214-01 at 1000. Patient/family oriented to hospital policies and general routines including ID bracelet, bed and alarms, visiting hours, pain management, procedures, bathroom and other care routines, personal items, smoking policy, room service/diet, and visiting hours. Information on how to activate the Rapid Response Team has been discussed. Patient/Family are encouraged to report perceived risks to care and to ask questions if they do not understand what they are told or what they should do.
--- NOTE | 2021-08-10 10:50 | ADMGEN ---
This patient, Lenny Rogers, was admitted to IMU Room 214-01 at 0950. Patient/family oriented to hospital policies and general routines including ID bracelet, bed and alarms, visiting hours, pain management, procedures, bathroom and other care routines, personal items, smoking policy, room service/diet, and visiting hours. Information on how to activate the Rapid Response Team has been discussed. Patient/Family are encouraged to report perceived risks to care and to ask questions if they do not understand what they are told or what they should do.
--- NOTE | 2021-08-10 11:56 | PM.CNCAR ---
Assessment and Plan Additional Plan This is an 86-year-old man with a longstanding history of coronary disease who apparently has a significant ischemic cardiomyopathy judging from his medical regimen in the fact that he has a defibrillator. He came into the hospital with noncardiac complaints of generalized weakness of unclear etiology. The troponin levels that were sampled are out of normal range but they are flat and I do not believe we need to perform an ischemia workup at this time. The patient agrees with that he is not having any recent ischemic type chest pain symptoms. I do not plan on following him while he is in the hospital as I do not believe this is primarily new cardiac problem I would continue his medical regimen for his ischemic cardiomyopathy. It is somewhat unusual that this elderly man is taking digoxin however we are not in a position to further comment on this given the fact that we provide none of his cardiac care at this hospital and have no records that are pertain pertinent any of this Fortino Walden MD [facility] History of Present Illness History of Present Illness Consult date/time: 08/10/21 11:56 Consult reason: Other (Troponinemia) Reason For Visit: Shingles, Generalilzed Weakness, Elevated Troponin Narrative: This is an 86-year-old man I am seeing at the request of the hospitalist because of an elevated troponin level. The patient is unknown to me prior to this encounter but he is a very pleasant elderly man who provides a fairly good history. He came to this hospital emergency room because he said he was very weak and simply worn out . He says that a couple of weeks ago he was found to have shingles on the trunk on the left side he has been having his physician treat this with some improvement in the pain however he states that he just feels extremely weak almost and possible to get up and ambulate and a he had his family bring him in here to the emergency room. He is not having any cardiac symptoms such as chest pain pressure or heaviness. For reasons that are not evident to me troponin levels were sampled in the emergency department and they are out of normal range and flat at 0.2. He has a very long history of coronary disease and is seems obvious to me that he has a significant ischemic cardiomyopathy. He receives all of his cardiac care at [facility]. He states that he had a significant myocardial infarction way back in the 1980s after which he underwent surgical myocardial revascularization. He then states that he has had a number of percutaneous revascularization procedures over there but nothing in the recent years. He obviously has a significant cardiomyopathy based on his medical regimen and the fact that he has a permanently implanted defibrillator. He says that and in addition to the pain that he is experiencing with his shingles he also has significant chronic low back pain and receives epidural injections for this on occasion. His electrocardiogram shows sinus mechanism with low amplitude P waves with a first-degree AV block he has right bundle branch block and a leftward axis. Previous ECGs are without significant change. Review of Systems Constitutional: Constitutional: Reports fatigue and Reports lethargy Eyes: Eyes: Reports no additional eye complaints ENT: Reports system reviewed and no additional complaints, except as documented Cardiovascular: Cardiovascular: Reports no additional cardiovascular complaints and Reports pedal edema Comments: Chronic lower extremity edema no recent worsening Respiratory: Respiratory: Reports dyspnea on exertion Gastrointestinal: Gastrointestinal: Reports no additional gastrointestinal complaints Musculoskeletal: Musculoskeletal: Reports as per HPI and Reports back pain Integumentary/Breasts: Skin/Breast: Reports system reviewed and no additional complaints, except as docu Neurologic: Reports system reviewed and no additional complaints, except as documente
--- NOTE | 2021-08-10 16:14 | PM.IMHP ---
H&P: HPI History of Present Illness Date/Time: Patient was placed observation status for expected length of stay less than 23 hours for management, will plan to re-evaluate tomorrow for improvement. 08/10/21 16:14 Chief Complaint: Weakness Narrative: Mr. Rogers is an 86-year-old gentleman who presented emergency room with complaints of generally feeling weak. Patient states over the last 2 days he has had increasing weakness. Patient denies any chest pain, shortness breast, lightheadedness, dizziness, syncopal, or near syncopal episodes. Patient was recently diagnosed with shingles and was placed on Valtrex. Patient denies any recent falls. Patient states he has been taking all medications at home without any difficulty. Upon evaluation in emergency room patient was noted to have elevated troponins and Cardiology was consulted. Patient has significant history for coronary artery disease and ischemic cardiomyopathy. Patient was also noted to have a decreased potassium level and patient did receive potassium supplementation emergency room. Patient has a known history of aortic sclerosis, diabetes mellitus, CAD, dyslipidemia, ischemic cardiomyopathy status post ICD. Review of Systems Review of Systems: A 12 point review of systems was completed patient all pertinent positive and negative per HPI the remainder are unremarkable. 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urgical History History of bilateral knee replacement History of left heart catheterization 08/2009 Hx laparoscopic cholecystectomy Hx of CABG 1988 Stented coronary artery left main 12/2007 Family History Family History Mother Family history of cardiovascular disease, Onset Age: 89 Sibling Family history of lung cancer Social History Social History Smoking status: Former smoker Tobacco type: cigarettes Second hand tobacco smoke exposure: No Alcohol intake: current Drinks per week: 7 Substance use: never Substance use type: does not use Gender identity (if verbalized by the patient): Male Spiritual care concerns: No Agree to blood products: Yes Meds Home Medications and Allergies Home Medications Medication Instructions Recorded Confirmed Type Entresto 1 tablet PO BID 05/02/19 08/10/21 History alprazolam 0.25 mg PO DAILY 05/02/19 08/10/21 History atorvastatin 20 mg PO HS 05/02/19 08/10/21 History carvedilol 9.25 mg PO BID 05/02/19 08/10/21 History ezetimibe 5 mg PO DAILY 05/02/19 08/10/21 History niacin 500 mg PO BID 05/02/19 08/10/21 History nitroglycerin 0.4 mg SUBLINGUAL Q5-15M PRN 05/02/19 08/10/21 History I-Caps 2 cap PO DAILY 05/17/19 08/10/21 History acetaminophen [Tylenol Extra 1,000 mg PO Q4-5H PRN 05/17/19 08/10/21 History Strength] aspirin 81 mg PO DAILY 05/17/19 08/10/21 History clopidogrel 75 mg PO DAILY 05/17/19 08/10/21 History loratadine 10 mg PO DAILY 05/17/19 08/10/21 History omega-3 fatty acids [Super [place]ana-3] 900 mg PO DAILY 05/17/19 08/10/21 History digoxin 125 mcg PO EVERY OTHER DAY 08/10/21 08/10/21 History furosemide 20 mg PO DAILY 08/10/21 08/10/21 History tizanidine 2 mg PO Q6-8H PRN 08/10/21 08/10/21 History valacyclovir 1,000 mg PO TID 08/10/21 08/10/21 History Allergies Allergy/AdvReac Type Severity Reaction Status Date / Time codeine Allergy Unknown Unknown Verified 08/10/21 05:42 spironolactone Allergy Unknown Unknown Verified 08/10/21 05:42 rosuvastatin AdvReac Intermediate EXCESSIVE Verified 08/10/21 05:42 SWEATING
[2021-08-10 16:51] LABS: Troponin I 0.166 ng/mL (0.000-0.034)
[2021-08-10] MEDS: HYDROcodone/acetaminophen (*CRX) 5-325 MG TABLET 1 TAB PO (23:29)
[2021-08-11] VITALS (13 sets, daily range): BP systolic 93–114; BP diastolic 46–79; PULSE 65–88; RESP 18–22; TEMP 36.1–36.5; O2SAT 92–100
[2021-08-11] MEDS: GABAPENTIN 100 MG CAPSULE PO (02:03)
[2021-08-11 05:52] LABS: Basophils Percent Auto 0.8 % (0.2-1.2); Eosinophils Absolute Auto 0.1 K/mm3 (0-0.3); Eosinophils Percent Auto 1.1 % (0-4.4); Hematocrit 36.9 % (42.0-52.0); Hemoglobin 11.8 g/dL (14.0-18.0); Immature Granulocyte Absolute 0.04 K/mm3 (0.00-0.031); Immature Granulocyte Percent A 0.8 % (0-0.5); Immature Platelet Fraction Pct 3.1 % (0.9-11.2); Lymphocytes Absolute Auto 1.46 K/mm3 (0.9-3.2); Lymphocytes Percent Auto 27.6 % (18.3-44.2); Mean Corpuscular Hemoglobin 33.8 pg (26-34); Mean Corpuscular Volume 105.7 fl (80-100); Mean Platelet Volume 10.4 fl (7.4-10.4); Monocytes Absolute Auto 0.5 K/mm3 (0.1-0.6); Monocytes Percent Auto 9.8 % (2.6-8.5); Neutrophils Absolute Auto 3.2 K/mm3 (1.3-6.7); Neutrophils Percent Auto 59.9 % (45.5-73.1); Platelet Count Result 63 k/mm3 (150-375); Red Blood Count 3.49 M/mm3 (4.6-6.20); Red Cell Distribution Width 16.2 % (11.5-14.5); White Blood Count 5.3 K/mm3 (4.5-10.0)
[2021-08-11 07:43] LABS: Atypical Lymphocytes Present; Platelet Estimate Decreased (Adequate)
[2021-08-11 07:44] LABS: Ovalocytes 1+ (NORMAL)
[2021-08-11 08:38] LABS: Potassium 3.3 mmol/L (3.4-5.0)
[2021-08-11 09:03] LABS: Anion Gap 9 mmol/L (8-16); Blood Urea Nitrogen 30 mg/dL (9-20); Calcium 8.4 mg/dL (8.4-10.2); Carbon Dioxide 26 mmol/L (22-30); Chloride 101 mmol/L (98-107); Estimated CRCL calculation 51 ml/min; Estimated Glomerular Filt Rate 58; Glucose 108 mg/dL (65-110); Sodium 136 mmol/L (137-145)
[2021-08-11] MEDS: SACUBITRIL/VALSARTAN 97-103 MG TABLET 1 TAB PO ×2 (09:12→20:10)
[2021-08-11] MEDS: SPIRONOLACTONE 25 MG TABLET PO (09:12)
[2021-08-11] MEDS: EZETIMIBE 5 MG TABLET PO (09:13)
[2021-08-11] MEDS: LORATADINE 10 MG TABLET PO (09:13)
[2021-08-11] MEDS: OMEGA 3 POLYUNSAT FATTY ACIDS 1 GM CAP PO (09:13)
[2021-08-11] MEDS: FUROSEMIDE 40 MG TABLET PO (09:13)
[2021-08-11] MEDS: CLOPIDOGREL BISULFATE 75 MG TABLET PO (09:14)
[2021-08-11] MEDS: carvediloL 6.25 MG TABLET PO ×2 (09:14→20:09)
[2021-08-11] MEDS: ALPRAZolam (*CRX) 0.25 MG TABLET PO (09:19)
[2021-08-11] MEDS: ASPIRIN 81 MG CHEWABLE TABLET PO (09:19)
--- NOTE | 2021-08-11 13:20 | PM.IMPN ---
Progress Note: A&P Assessment and Plan (1) Generalized weakness: Code(s): R53.1 - Weakness Status: Acute Assessment and Plan: Patient has no neurological deficits. PT OT evaluated and signed off (2) Elevated troponin: Code(s): R77.8 - Other specified abnormalities of plasma proteins Status: Acute Assessment and Plan: Cardiology consulted severe flat troponin trajectory. Not suggestive of ACS. Has underlying history of ischemic cardiomyopathy and likely has chronically elevated troponins. Recommendation from the Cardiology appreciated (3) Acute hypokalemia: Code(s): E87.6 - Hypokalemia Status: Acute Assessment and Plan: Patient received potassium supplementation emergency room. Replace as needed (4) Thrombocytopenia: Code(s): D69.6 - Thrombocytopenia, unspecified Status: Acute Assessment and Plan: Patient's platelet count is 63. Platelet count is stable today. Suspected to be due to Valtrex which was recently use for treatment for his shingles. Could also be related to underlying infection No and recent history of heparin use (5) Shingles: Qualifiers: Herpes zoster complications: without complications Qualified Code(s): B02.9 - Zoster without complications Code(s): B02.9 - Zoster without complications Status: Acute Assessment and Plan: Held Valtrex due to thrombocytopenia Looks secondary infected will put him on Ancef Tylenol p.r.n. for pain (6) Nausea & vomiting: Code(s): R11.2 - Nausea with vomiting, unspecified Status: Acute Assessment and Plan: Symptomatic treatment for now. Subjective Date/time seen: 08/11/21 13:20 Interval history: HPI:Mr. Rogers is an 86-year-old gentleman who presented emergency room with complaints of generally feeling weak. Patient states over the last 2 days he has had increasing weakness. Patient denies any chest pain, shortness breast, lightheadedness, dizziness, syncopal, or near syncopal episodes. Patient was recently diagnosed with shingles and was placed on Valtrex. Patient denies any recent falls. Patient states he has been taking all medications at home without any difficulty. Upon evaluation in emergency room patient was noted to have elevated troponins and Cardiology was consulted. Patient has significant history for coronary artery disease and ischemic cardiomyopathy. Patient was also noted to have a decreased potassium level and patient did receive potassium supplementation emergency room. Patient has a known history of aortic sclerosis, diabetes mellitus, CAD, dyslipidemia, ischemic cardiomyopathy status post ICD. 08/11/2021 work with therapy today complains of cough denies any obvious shortness of breath. Has some leg swelling. Has underlying history of congestive heart failure. He is a former smoker quit in 1959. His chronic thrombocytopenia. Reports hurting in his shingles area. He had an episode vomiting during my evaluation today denies any abdominal pain Review of Systems Review of Systems: All systems reviewed & are unremarkable except as noted in HPI and below (HPI) Exam Narrative: Constitutional: Patient is well-nourished in no acute distress. Patient is alert and oriented x3 HEENT: Moist mucous membranes. No scleral icterus. No lymphadenopathy. Neck: No carotid bruits noted no JVD noted Lungs: Lung sounds are clear to auscultation bilaterally. No accessory muscle use. No rhonchi, rales, or wheezes noted. Cardiovascular: Apical pulse is regular rate and rhythm. S1-S2 noted, no S3 or S4 noted. No gallops, murmurs, or rubs noted. Abdomen: Soft, round, and nontender. No palpable masses. Extremities: 3+ pitting edema to bilateral lower extremities. Nontender. Skin: Patient has a large amount of shingles noted on his left static that wraps around laterally to his back. Vesicles are yellowish general also crusted lesions around th
[2021-08-11] MEDS: POTASSIUM CHLORIDE 20 MEQ TABLET 40 MEQ PO (13:52)
[2021-08-11] MEDS: FUROSEMIDE INJ 40 MG/4 ML VIAL 20 MG IV PUSH (15:14)
[2021-08-11 15:34] LABS: NT Pro B Type Natriuretic Pept 7850 pg/mL (5-100)
[2021-08-11 17:30] LABS: Add Urine Microscopic? YES; Appearance Urine Clear (Clear); Bilirubin Urine Negative (Negative); Blood Urine Negative (Negative); Color Urine Yellow (Yellow); Glucose Urine UA Negative (Negative); Ketones Urine Negative (Negative); Leukocyte Esterase Ur Negative LEU/UL (NEGATIVE); Nitrate Urine Negative (Negative); Protein Urine Negative (Negative); Specific Grav Ur 1.009 (1.001-1.035); Squamous Epithelial Cell Urine Rare /hpf (Few); WBC Urine 0-3 /hpf (0-3)
[2021-08-11] MEDS: ATORVASTATIN 20 MG TABLET PO (20:09)
[2021-08-11] MEDS: NIACIN SA 500 MG TABLET 1000 MG PO (20:09)
[2021-08-11] MEDS: TOLNAFTATE 1% POWDER 45 GM BTL 1 APPLIC TOPICAL (20:10)
[2021-08-11] MEDS: DIGOXIN TAB 125 MCG TABLET PO (23:06)
[2021-08-12] VITALS (7 sets, daily range): BP systolic 92–104; BP diastolic 53–71; PULSE 56–70; RESP 20; TEMP 36.3; O2SAT 96–97
[2021-08-12 06:21] LABS: Basophils Percent Auto 0.5 % (0.2-1.2); Eosinophils Absolute Auto 0.1 K/mm3 (0-0.3); Eosinophils Percent Auto 1.1 % (0-4.4); Hematocrit 35.6 % (42.0-52.0); Hemoglobin 11.3 g/dL (14.0-18.0); Immature Granulocyte Absolute 0.03 K/mm3 (0.00-0.031); Immature Granulocyte Percent A 0.5 % (0-0.5); Lymphocytes Absolute Auto 1.35 K/mm3 (0.9-3.2); Lymphocytes Percent Auto 21.5 % (18.3-44.2); Mean Corpuscular HGB Conc 31.7 g/dl (32-36); Mean Corpuscular Hemoglobin 33.5 pg (26-34); Mean Corpuscular Volume 105.6 fl (80-100); Mean Platelet Volume 10.3 fl (7.4-10.4); Monocytes Absolute Auto 0.6 K/mm3 (0.1-0.6); Monocytes Percent Auto 8.9 % (2.6-8.5); Neutrophils Absolute Auto 4.3 K/mm3 (1.3-6.7); Neutrophils Percent Auto 67.5 % (45.5-73.1); Platelet Count Result 62 k/mm3 (150-375); Red Blood Count 3.37 M/mm3 (4.6-6.20); Red Cell Distribution Width 16.2 % (11.5-14.5); White Blood Count 6.3 K/mm3 (4.5-10.0)
[2021-08-12 06:34] LABS: Alanine Aminotransferase 16 U/L (4-50); Albumin Level 2.9 g/dL (3.5-5.1); Alkaline Phosphatase 82 U/L (38-126); Anion Gap 8 mmol/L (8-16); Aspartate Amino Transferase 43 U/L (17-59); Bilirubin,Total 3.8 mg/dL (0.2-1.3); Blood Urea Nitrogen 26 mg/dL (9-20); Calcium 7.9 mg/dL (8.4-10.2); Carbon Dioxide 27 mmol/L (22-30); Chloride 102 mmol/L (98-107); Estimated CRCL calculation 55 ml/min; Estimated Glomerular Filt Rate > 60; Glucose 118 mg/dL (65-110); Magnesium 1.7 mg/dL (1.6-2.3); Potassium 3.5 mmol/L (3.4-5.0); Sodium 137 mmol/L (137-145)
[2021-08-12 07:00] LABS: Atypical Lymphocytes Present; Platelet Estimate Decreased (Adequate)
[2021-08-12] MEDS: ACETAMINOPHEN 325 MG TABLET 650 MG PO (08:39)
[2021-08-12] MEDS: OMEGA 3 POLYUNSAT FATTY ACIDS 1 GM CAP PO (08:41)
[2021-08-12] MEDS: EZETIMIBE 5 MG TABLET PO (08:42)
[2021-08-12] MEDS: carvediloL 6.25 MG TABLET PO (08:43)
[2021-08-12] MEDS: LORATADINE 10 MG TABLET PO (08:45)
[2021-08-12] MEDS: FUROSEMIDE 40 MG TABLET PO (08:45)
[2021-08-12] MEDS: CLOPIDOGREL BISULFATE 75 MG TABLET PO (08:45)
[2021-08-12] MEDS: ALPRAZolam (*CRX) 0.25 MG TABLET PO (08:46)
[2021-08-12] MEDS: TOLNAFTATE 1% POWDER 45 GM BTL 1 APPLIC TOPICAL (08:47)
[2021-08-12] MEDS: ASPIRIN 81 MG CHEWABLE TABLET PO (10:57)
--- NOTE | 2021-08-12 14:38 | PM.DS ---
DS: Admitting Diagnosis Discharge Date 08/12/2021 Admitting Diagnosis Generalized weakness DS: Discharge Diagnosis Discharge Diagnosis (1) Generalized weakness: Code(s): R53.1 - Weakness Status: Acute Assessment and Plan: Patient has no neurological deficits. PT OT evaluated and signed off. Will arrange for home health for ongoing PT OT and nursing care (2) Elevated troponin: Code(s): R77.8 - Other specified abnormalities of plasma proteins Status: Acute Assessment and Plan: Cardiology consulted severe flat troponin trajectory. Not suggestive of ACS. Has underlying history of ischemic cardiomyopathy and likely has chronically elevated troponins. Recommendation from the Cardiology appreciated. He will follow-up with his regular principal investigator as an outpatient basis previously scheduled. (3) Acute hypokalemia: Code(s): E87.6 - Hypokalemia Status: Acute Assessment and Plan: Patient received potassium supplementation emergency room. Replace as needed (4) Thrombocytopenia: Code(s): D69.6 - Thrombocytopenia, unspecified Status: Acute Assessment and Plan: Patient's platelet count is 63. Platelet count was monitored throughout the hospital stay and remained stable. Suspected to be due to Valtrex which was recently use for treatment for his shingles. This has been discontinued Could also be related to underlying infection No and recent history of heparin use Will refer to podiatrist orthopedic as an outpatient basis for ongoing evaluation (5) Shingles: Qualifiers: Herpes zoster complications: without complications Qualified Code(s): B02.9 - Zoster without complications Code(s): B02.9 - Zoster without complications Status: Acute Assessment and Plan: Held Valtrex due to thrombocytopenia Looks secondary infected ; placed on IV antibiotics Ancef. Will switch to Keflex at discharge. WBC count was normal Tylenol p.r.n. for pain (6) Nausea & vomiting: Code(s): R11.2 - Nausea with vomiting, unspecified Status: Acute Assessment and Plan: Symptomatic treatment for now. (7) Groin rash: Code(s): R21 - Rash and other nonspecific skin eruption Status: Acute Assessment and Plan: Related to candidiasis Dribbling of urine constantly present. He will need to be evaluated by Urology. Armstrong placed and planned to be continued at discharge until follow-up with urology as an outpatient basis. This is to ensure adequate healing of his groin infection as well as to evaluate for his lower urinary tract obstructive symptoms. He will benefit from addition of Flomax however blood pressure is lowish with concern for tolerability currently. Since we have him on Armstrong catheter will not require this medication as of now DS: Summary Hospital Course Hospital Course: See above Time Spent with Patient Time attestation: Total time spent providing and/or coordinating discharge services: 50 minutes Exam Narrative: Constitutional: Patient is well-nourished in no acute distress. Patient is alert and oriented x3 HEENT: Moist mucous membranes. No scleral icterus. No lymphadenopathy. Neck: No carotid bruits noted no JVD noted Lungs: Lung sounds are clear to auscultation bilaterally. No accessory muscle use. No rhonchi, rales, or wheezes noted. Cardiovascular: Apical pulse is regular rate and rhythm. S1-S2 noted, no S3 or S4 noted. No gallops, murmurs, or rubs noted. Abdomen: Soft, round, and nontender. No palpable masses. Extremities: 3+ pitting edema to bilateral lower extremities. Nontender. Skin: Patient has a large amount of shingles noted on his left static that wraps around laterally to his back. Vesicles are yellowish general also crusted lesions around the anterior abdominal wall shingles area looks well healed Neurological: No focal neurological deficits. Cranial nerves II-XII grossly intact. Psychiatric:
--- NOTE | 2021-08-12 14:53 | PC.NURSE ---
On 08/12/21, the student, Melani Jarrell, provided care and completed [facility] documentation on this patient. I have reviewed the student's documentation and agree with the findings.
== END 2021-08-12 17:10 | disposition home health service (06) | DRG 948 ==
LOC: ANHED 08:55 → ANHIMU 09:43 → ANH3MEDSUR 08-11 17:09
PROVIDERS: Nurse Practitioner Adult Health; Admitting Provider Internal Medicine; Emergency Provider Emergency Medicine; PCP Student in an Organized Health Care Education/Training Program; Visit Provider Internal Medicine
DX: R53.1 Weakness (principal); I50.22 Chronic systolic (congestive) heart failure; B37.89 Other sites of candidiasis; E87.6 Hypokalemia; B02.9 Zoster without complications; E78.5 Hyperlipidemia, unspecified; I25.2 Old myocardial infarction; I25.10 Atherosclerotic heart disease of native coronary artery without angina pectoris; I35.8 Other nonrheumatic aortic valve disorders; R73.03 Prediabetes; Z95.5 Presence of coronary angioplasty implant and graft; Z87.891 Personal history of nicotine dependence; Z95.1 Presence of aortocoronary bypass graft; I25.5 Ischemic cardiomyopathy; Z95.810 Presence of automatic (implantable) cardiac defibrillator; D69.6 Thrombocytopenia, unspecified; R77.8 Other specified abnormalities of plasma proteins; Z79.82 Long term (current) use of aspirin; R11.2 Nausea with vomiting, unspecified; I44.0 Atrioventricular block, first degree; I45.10 Unspecified right bundle-branch block
CPT/HCPCS: 36415; 70450; 71045; 80048; 80053; 80162; 81001; 83735; 83880; 84484; 85025; 85055; 85610; 85730; 93005; 96374; 97161; 97165; 99285; A9270; G0378; J0690; J1940